=== PATIENT | male | born 1975 | race Caucasian/White ===

== ENCOUNTER 2021-01-23 09:06 | Emergency (ER) | payer BC ==
[~2021-01-23] VITALS: Ht 180.3 cm; Wt 102.3 kg
[2021-01-23 09:15] VITALS: TEMP 97.1
[2021-01-23] MEDS ORDERED: VALIUM 5MG T5 MG/TAB PO (10:31)
[2021-01-23] MEDS ORDERED: PERCOCET 325 MG1 TA2 PO (10:31)
[2021-01-23] MEDS ORDERED: PREDNISONE20 MG PO (10:31)
[2021-01-23 11:00] VITALS: BP 155/89; PULSE 78
[2021-02-22] MEDS ORDERED: ZESTRIL 10MG10 MG PO (12:48)
[2021-02-22] MEDS ORDERED: ALEVE 220MG220 MG PO (12:49)
[2021-02-27] MEDS ORDERED: PERCOCET 325 MG1 TA2 PO (09:37)
== END 2021-01-23 11:00 | disposition home or self-care (01) ==
LOC: COL.ER 09:06
DX: M54.6 Pain in thoracic spine (principal); M79.602 Pain in left arm
CPT/HCPCS: J2270; J3360; J7512

== ENCOUNTER → 2021-02-27 | Outpatient (CLI) | payer BC ==
[~2021-02-27] VITALS: Ht 180.3 cm; Wt 101.6 kg
[~2021-02-27] MED LIST: ALEVE 220MG220 MG PO; PERCOCET 325 MG1 TA2 PO; PREDNISONE20 MG PO; VALIUM 5MG T5 MG/TAB PO; ZESTRIL 10MG10 MG PO
[2021-02-27 09:37] VITALS: BP 124/82; PULSE 88; TEMP 98.3
[2021-02-27 10:15] VITALS: BP 126/83; PULSE 80
== END ==
LOC: COL.RAD 09:12
DX: M54.12 Radiculopathy, cervical region (principal)
CPT/HCPCS: J1100

== ENCOUNTER → 2021-04-06 | Outpatient (CLI) | payer BC ==
[~2021-04-06] VITALS: Ht 180.3 cm; Wt 104.5 kg
[2021-04-06 08:55] VITALS: BP 122/77; PULSE 78; TEMP 98.1
[2021-04-06 09:38] VITALS: BP 129/80; PULSE 77
== END ==
LOC: COL.RAD 03-30 13:00
DX: M54.12 Radiculopathy, cervical region (principal)
CPT/HCPCS: J1100